=== PATIENT | male | born 1950 | race Caucasian/White ===

== ENCOUNTER 2023-04-03 10:49 | Day surgery (SDC) | payer MEDICARE, OTHER ==
[2023-03-28 15:47] LABS: BASOPHILS # (AUTO) 0.1 X10'3 (0-0.2); BASOPHILS % (AUTO) 0.5 % (0-1); EOSINOPHILS # (AUTO) 0.1 X10'3 (0-0.9); EOSINOPHILS % (AUTO) 0.6 % (0-6); HEMATOCRIT 43.7 % (42.0-52.0); HEMOGLOBIN 14.6 g/dl (14.0-17.9); LYMPHOCYTES # (AUTO) 1.4 X10'3 (1.1-4.8); LYMPHOCYTES % (AUTO) 13.1 % (21-51); MEAN CORPUSCULAR HEMOGLOBIN 32.3 PG (27.0-31.0); MEAN CORPUSCULAR HGB CONC 33.4 g/dL (33.0-36.5); MEAN CORPUSCULAR VOLUME 96.5 FL (78-98); MEAN PLATELET VOLUME 9.6 FL (7.4-10.4); MONOCYTES # (AUTO) 0.8 X10'3 (0-0.9); MONOCYTES % (AUTO) 7.7 % (2-12); NEUTROPHILS % (AUTO) 78.1 % (42-75); PLATELET COUNT 220 X10'3 (140-440); RED BLOOD COUNT 4.53 X10'6 (4.70-6.10); RED CELL DISTRIBUTION WIDTH 13.5 % (11.5-14.5); WHITE BLOOD COUNT 10.3 X10'3 (4.5-11.0)
[2023-03-28 16:01] LABS: APTT 29 SECONDS (22-32)
[2023-03-28 16:06] LABS: ALANINE AMINOTRANSFERASE 30 U/L (12-78); ALBUMIN/GLOBULIN RATIO 1.3 (1.1-1.5); ALKALINE PHOSPHATASE 97 IU/L (46-116); ANION GAP 11 (8-16); ASPARTATE AMINO TRANSFERASE 17 U/L (10-37); BILIRUBIN,TOTAL 0.7 MG/DL (0.1-1.0); BLOOD UREA NITROGEN 22 MG/DL (7-18); BUN/CREATININE RATIO 14.8 (10.0-20.0); CALCIUM 9.2 MG/DL (8.5-10.1); CHLORIDE 108 MMOL/L (99-107); CREATININE 1.49 MG/DL (0.60-1.10); GLUCOSE 130 MG/DL (70-104); SODIUM 141 MMOL/L (135-145); TOTAL CARBON DIOXIDE 22.3 MMOL/L (24-32); TOTAL PROTEIN 7.2 G/DL (6.4-8.2); eGFR 46 ML/MIN
[2023-04-03] VITALS (11 sets, daily range): BP systolic 103–154; BP diastolic 64–80; PULSE 51–62; RESP 14–16; TEMP 98.2; O2SAT 93–99
[~2023-04-03] VITALS: Ht 177.8 cm; Wt 85.2 kg
[2023-04-03] MEDS ORDERED: OMEP40CA21 PO (11:27)
[2023-04-03] MEDS ORDERED: BIMA2.5D EACHEYE (11:27)
[2023-04-03] MEDS ORDERED: OLME40TA70 PO (11:27)
[2023-04-03] MEDS ORDERED: ASPI-611 PO (11:27)
[2023-04-03] MEDS ORDERED: FINE20TA PO (11:27)
[2023-04-03] MEDS ORDERED: ATOR20TA66 PO (11:27)
[2023-04-03] MEDS ORDERED: EMPA10TA PO (11:27)
[2023-04-03] MEDS ORDERED: LOSA100T58 PO (11:27)
[2023-04-03] MEDS ORDERED: BRIM5DRO2 EACHEYE (11:27)
[2023-04-03] MEDS ORDERED: nitroGLYCERIN 0.4mg SUBLingual tab SL PRN ×2 (11:30→14:35)
[2023-04-03] MEDS ORDERED: LORazepam 0.5 MG tablet PO PRN (11:30)
[2023-04-03] MEDS ORDERED: diphenhydrAMINE 25mg capsule PO PRN (11:30)
[2023-04-03] MEDS ORDERED: normal saline 1,000 ML IV SCH (11:30)
[2023-04-03] MEDS ORDERED: MESSAGE TO PHARMACY PO ONE (11:35)
[2023-04-03] MEDS ORDERED: dextrose 50%-water 50ml dispensing syringe IV PRN ×2 (11:35)
[2023-04-03] MEDS ORDERED: glucagon, human recombinant 1mg kit SUBCUT PRN (11:35)
[2023-04-03] MEDS ORDERED: insulin Lispro (HumaLOG) vial - multi-dose SQ SCH (11:35)
[2023-04-03] MEDS ORDERED: DEXTROSE 15 GM of carb/4 tabs (each vial/BOTTLE has 4 tablets) PO PRN ×2 (11:35)
[2023-04-03] MEDS ORDERED: iohexol 350MG/ML 100ml bottle IV ONE (13:04)
[2023-04-03] MEDS ORDERED: fentaNYL/PF 50MCG/1 ML 2ML syringe ONE (13:04)
[2023-04-03] MEDS ORDERED: midazolam 1 mg/ML 2ml injection ONE (13:04)
[2023-04-03] MEDS ORDERED: LIDOcaine 1% (10mg/ml)w/preservative inj. 20ml MDV ONE (13:04)
[2023-04-03] MEDS ORDERED: iohexol 350 MG/ML 50ML vial IV ONE (13:04)
[2023-04-03] MEDS ORDERED: OXAZEpam 15mg capsule PO PRN (14:35)
[2023-04-03] MEDS ORDERED: HYDROcodone/acetaminophen 5mg/325mg tablet PO PRN (14:35)
[2023-04-03] MEDS ORDERED: proCHLORperazine 10 MG/2 ml inj IV PRN (14:35)
[2023-04-03] MEDS ORDERED: normal saline 1000ml 1,000 ML IV SCH (14:35)
[2023-04-03] MEDS ORDERED: HYDROcodone/acetaminophen 10/325mg tab PO PRN (14:35)
[2023-04-03] MEDS ORDERED: ondansetron/PF 4mg/2ml inj IV PRN (14:35)
[2023-04-03] MEDS ORDERED: insulin glargine (Lantus) pen - multi-dose SQ SCH (21:00)
== END 2023-04-03 19:20 | disposition home or self-care (01) ==
LOC: SSTAY O 10:49
PROVIDERS: ATTEND Internal Medicine Cardiovascular Disease
DX: R94.39 Abnormal result of other cardiovascular function study (principal); I25.10 Atherosclerotic heart disease of native coronary artery without angina pectoris; I10 Essential (primary) hypertension; E78.5 Hyperlipidemia, unspecified; E11.39 Type 2 diabetes mellitus with other diabetic ophthalmic complication; H42 Glaucoma in diseases classified elsewhere; K21.9 Gastro-esophageal reflux disease without esophagitis; M47.819 Spondylosis without myelopathy or radiculopathy, site unspecified; Z86.73 Personal history of transient ischemic attack (TIA), and cerebral infarction without residual deficits; Z88.8 Allergy status to other drugs, medicaments and biological substances; Z98.890 Other specified postprocedural states; Z79.899 Other long term (current) drug therapy; Z79.01 Long term (current) use of anticoagulants
CPT/HCPCS: 36415; 71046; 80053; 82948; 83036; 85025; 85610; 85730; 93005; 93458; J1644; J1815; J2250; J2405; J3010; J3490; J7030; Q0163; Q9967; 99152; A6258; C1760